=== PATIENT | male | born 1995 | race Caucasian/White ===

== ENCOUNTER 2017-02-22 15:17 | Emergency (ER) | payer BC, MEDICAID ==
[~2017-02-22] VITALS: Ht 177.8 cm; Wt 85.0 kg
[2017-02-22 15:19] VITALS: Ht 177.8 cm; Wt 85.0 kg
[2017-02-22] MEDS ORDERED: ACET325T33 PO (15:31)
[2017-02-22] MEDS ORDERED: AMO500 PO (15:31)
--- NOTE | 2017-02-22 15:39 | ERA ---
ER Documentation Chief Complaint Date/Time DATE: 02/22/17 TIME: 15:34 Chief Complaint sore throat , vomiting x 1 week , lt ear pain today HPI Patient is a 21-year-old male with chief complaint of pharyngitis. Patient has had symptoms for past 10 days. Describes a mild dry cough and mild vomiting that has occurred 1-2 times over the past 10 days. Patient quantifies the moment as "only little bit". Pt denies weight loss, fevers, nausea, diarrhea, constipation, hyperhidrosis, rigors, fatigue, difficulty breathing, chest pain, or change in bowl/bladder habbits. Patient does not take any medications to relieve the symptoms. ROS All systems reviewed and are negative except as per history of present illness. Medications Home Meds Active Scripts Acetaminophen* (Tylenol*) 325 Mg Tablet, 1 TAB PO Q6 Y for PAIN AND OR ELEVATED TEMP, #20 TAB Prov:FRANK TAVARES PA-C 02/22/17 Amoxicillin* (Amoxicillin*) 500 Mg Cap, 500 MG PO TID for 7 Days, CAP Prov:FRANK TAVARES PA-C 02/22/17 PMhx/Soc History of Surgery: No Anesthesia Reaction: No Hx Neurological Disorder: No Hx Respiratory Disorders: No Hx Cardiac Disorders: No Hx Psychiatric Problems: No Hx Miscellaneous Medical Probl: No Hx Alcohol Use: No Hx Substance Use: No Hx Tobacco Use: No Physical Exam Vitals Vital Signs Date Time Temp Pulse Resp B/P Pulse Ox O2 Delivery O2 Flow Rate FiO2 02/22/17 15:19 98.7 90 18 150/81 98 Physical Exam Const: Well-appearing well-developed 21-year-old male who is sitting upright is in no acute distress Head: Atraumatic Eyes: Normal Conjunctiva. Extraocular movements intact bilaterally. PERRLA. ENT: Normal External Ears, Nose and Mouth. No exudates visualized. Tonsils are not grossly enlarged. Neck: Full range of motion..~ No meningismus. No cervical lymphadenopathy. Resp: Clear to auscultation bilaterally Cardio: Regular rate and rhythm, no murmurs Abd: Soft, non tender, non distended. Normal bowel sounds. No palpation of the spleen. No McBurney's point tenderness. Skin: No petechiae or rashes Back: No midline or flank tenderness Ext: No cyanosis, or edema Neur: Awake and alert Psych: Normal Mood and Affect Procedures/MDM 21-year-old otherwise healthy male complaining of pharyngitis for the past 10 days. Patient works no other symptoms no other associated manifestations. Patient denies any personal family history of diabetes or asthma. There is no stridor the patient is not having difficulty breathing and has an unremarkable lung exam. I recommended the patient follow-up with his primary care provider to be further evaluated for vomiting. Patient is able to tolerate p.o. and denies weight loss. Since the duration of pharyngitis has persisted over 10 days will go ahead and prescribe the patient a course of amoxicillin as he says it is worse in the past. Patient's vitals are currently stable. Will discharge patient with return precautions. Departure Diagnosis: Primary Impression: Pharyngitis, acute Qualified Code: J02.9 - Acute pharyngitis, unspecified etiology Additional Impression: Pharyngitis Qualified Code: J02.9 - Pharyngitis, unspecified etiology Condition: Stable Patient Instructions: Pharyngitis, Strep (Presumed) Additional Instructions: Follow up with your PCP within the next 1-3 days for a more thorough evaluation and a possible referral to a specialist. Return the the emergency department immediately if symptoms worsen or change. If you have any questions regarding medications, ask your pharmacist or us before you leave. If any adverse reactions occur while taking your medications, discontinue the treatment and return to the emergency department immediately. Take your medications as directed, and complete the entire course of treatment. FRANK TAVARES PA-C Feb 22, 2017 15:39
== END 2017-02-22 15:30 | disposition home or self-care (01) ==
LOC: E/R 15:17
DX: J02.9 Acute pharyngitis, unspecified (principal)
CPT/HCPCS: 99283